=== PATIENT | male | born 1960 | race Caucasian/White ===

== ENCOUNTER 2024-02-26 07:36 | Emergency (ER) | payer MEDICAID ==
[~2024-02-26] VITALS: Ht 175.3 cm; Wt 95.0 kg
[2024-02-26 07:59] LABS: Urine Bacteria None Seen /hpf (None Seen)
[2024-02-26 08:17] LABS: Urine Blood Negative /uL (Negative); Urine Clarity Clear (Clear); Urine Color Yellow (Yellow); Urine Hyaline Cast FEW /lpf (0 - 2); Urine Mucus FEW (None Seen); Urine Protein, UAD TRACE (Negative); Urine Specific Gravity 1.033 (1.001-1.035); Urine Squamous Epithelial Cell FEW /hpf (<5); Urine Urobilinogen Normal (Negative); Urine WBC 5 /hpf (0 - 3); Urine pH 5.5 (5.0-9.0)
--- NOTE | 2024-02-26 10:28 | ED.PDOC ---
History of Present Illness HPI Comments 64 y/o M, with a Hx of HLD, HTN, obesity, and gastric sleeve Sx, presents with c/o HTN, headache, and LLQ abdominal and left-lower back pain, today. Patient endorses on his blood pressure being uncontrolled, lately, amidst consulting his PCP and doubling his HTN medication (baseline prescription: Lisinopril 10mg BID), with most recent reading at home of 185/95. He also reports additional, unprovoked and sudden onset of headache and LLQ abdominal pain that radiates to his back, that he describes as fluctuating between dull and stabbing in quality. Patient reports no recent injuries, sick contact, or any additional relevant or pertinent Hx. He denies having any chest pain, shortness of breath, vision or speech changes, fever, chills, or other associated symptoms or modifiers at this time. Chief Complaint: High Blood Pressure Time Seen by MD: 09:20 Primary Care Provider: OOA Reviewed Notes: Nurses Notes, Medications, Allergies Allergies: Coded Allergies: NO KNOWN ALLERGIES (Unverified , 02/26/24) Information Source: Patient Mode of Arrival: Ambulatory Severity: Moderate Timing: Other (see HPI) Duration: Since onset Prehospital treatment: None Past Medical History PAST MEDICAL HISTORY: High Lipids, HTN Past Medical History (Other): obesity Surgical History (Other): gastric sleeve Family History Family History: Reviewed,noncontributory to illness Social History Smoker: Non-Smoker Alcohol: Denies ETOH Use Drugs: Denies Drug Use Lives In: Home Gastrointestinal: reports: abdominal pain Neurological: reports: headache Musculoskeletal: reports: back pain Hematologic/Lymphatic: reports: others (HTN) All Other Systems: Reviewed and Negative (negative unless otherwise stated above or in HPI) Physical Exam General Appearance: Moderate Distress HEENT: Normal ENT Inspection, Pharynx Normal, TMs Normal Neck: Full Range of Motion, Non-Tender, Normal, Normal Inspection Respiratory: Chest Non-Tender, Lungs Clear, No Accessory Muscle Use, No Respiratory Distress, Normal Breath Sounds Cardiovascular: No Edema, No JVD, No Murmur, No Gallop, Normal Peripheral Pulses, Regular Rate/Rhythm Breast Exam: Deferred Gastrointestinal: No Organomegaly, Non Tender, No Pulsatile Mass, Normal Bowel Sounds, Soft Genitalia: Deferred Pelvic: Deferred Rectal: Deferred Extremities: No calf tenderness, Normal capillary refill, Normal inspection, Normal range of motion, Non-tender, No pedal edema Musculoskeletal : Apperance: Normal Neurologic: Alert, bread stacker II-XII nml as Tested, No Motor Deficits, Normal Affect, Normal Mood, No Sensory Deficits Cerebellar Function: Normal Reflexes: Normal Skin: Dry, Normal Color, Warm Peripheral Pulses: 3+ Radial (R), 3+ Radial (L) Lymphatic: No Adenopathy Was a procedure done? Was a procedure done?: No Differential Dx Considerations may include: HTN uncontrolled, HTN emergency, inappropriate medication dosage, diverticulitis, testicular torsion, PID, cystitis, migraine, tension headache X-Ray, Labs, Meds, VS Vital Signs Date Time Temp Pulse Resp B/P (MAP) Pulse Ox O2 Delivery O2 Flow Rate FiO2 02/26/24 10:32 97.8 58 18 151/83 (105) 96 97.8 02/26/24 10:32 58 18 96 Room Air 02/26/24 10:32 151/83 02/26/24 07:50 98.4 71 18 151/95 (113) 97 Lab Test 02/26/24 10:15 02/26/24 07:46 Range/Units White Blood Count 6.8 4.4-10.8 10^3/uL Red Blood Count 4.84 4.5-5.90 10^6/uL Hemoglobin 15.2 13.5-17.5 g/dL Hematocrit 44.8 41.0-53.0 % Mean Corpuscular Volume 92.5 80.0-100.0 fL Mean Corpuscular Hemoglobin 31.3 28.0-32.0 pg Mean Corpuscular Hemoglobin Concent 33.9 32.0-36.0 g/dL Red Cell Distribution Width 13.7 11.8-14.3 % Platelet Count 282 140-450 10^3/uL Mean Platelet Volume 7.4 6.9-10.8 fL Neutrophils (%) (Auto) 63.7 37.0-80.0 % Lymphocytes (%) (Auto) 24.2 10.0-50.0 % Monocytes (%) (Auto) 7.6 0.0-12.0 % Eosinophils (%) (Auto) 4.0 0.0-7.0 % Basophils (%) (Auto) 0.5 0.0-2.0 % Neutrophils # (Auto) 4.3 1.6-8.6 10 ^3/uL Lymphocytes # (Auto) 1.6 0.4-5.4 10 ^3/uL Monocytes # (Auto) 0.5 0-1.3 10 ^3/uL Eosinophils # (Auto) 0.3 0-0.8 10 ^3/uL Basophils # (Auto) 0 0-0.2 10 ^3/uL Nucleated Red Blood Cells 0.1 % Sodium Level 144 136-145 mmol/L Potassium Level 3.9 3.5-5.1 mmol/L Chloride Level 111 H 98-107 mmol/L Carbon Dioxide Level 26 20-31 mmol/L Anion Gap 7 5-15 Blood Urea Nitrogen 10 9-23 mg/dL Creatinine 0.93 0.700-1.30 mg/dL Glomerular Filtration Rate Calc 93 >90 mL/min BUN/Creatinine Ratio Pending Serum Glucose 109 H 74-106 mg/dL Calcium Level 10.9 H 8.7-10.4 mg/dL Urine Color Yellow Yellow Urine Clarity Clear Clear Urine pH 5.5 5.0-9.0 Urine Specific [place] 1.033 1.001-1.035 Urine Protein Trace H Negative Urine Ketones Negative Negative Urine Blood Negative Negative /uL Urine Nitrite Negative Negative Urine Bilirubin Negative Negative Urine Urobilinogen Normal Negative mg/dL Urine Leukocyte Esterase 2+ Negative /uL Urine RBC 4 0 - 3 /hpf Urine WBC 5 0 - 3 /hpf Urine Squamous Epithelial Cells Few <5 /hpf Urine Bacteria None seen None Seen /hpf Urine Hyaline Casts Few 0 - 2 /lpf Urine Mucus Few None Seen Urine Glucose Normal Normal mg/dL Current Medications Medications (Trade) Dose Ordered Sig/Lola Route Start Time Stop Time Status Last Admin Clonidine HCl (Catapres Tablet) 0.2 mg ONCE ONCE PO 02/26/24 10:15 02/26/24 10:16 DC 02/26/24 10:32 Patient alert. Complaining of having high blood pressure. Was given clonidine. Vitals stable. Blood pressure normalized. UA shows UTI. Was given prescription of Bactrim. WBC within normal limits. Hemoglobin within normal limits. Abdomen is soft nontender. Reviewed his history. Explained to the patient. Was told to follow up with his primary care physician. Was told to come back if there is any problem. For his blood pressure he was told to have diet controlled. Exercise. Relaxation techniques. Continue lisinopril. Time of 1ST Reevaluation: 09:50 Reevaluation 1ST: Improved Time of 2ND Reevaluation: 11:00 Reevaluation 2ND: Improved Patient Education/Counseling: Diagnosis, Treatment Family Education/Counseling: No Family Present Additional Information I reviewed the following notes from patient's past medical encounters: ED physician documentation on 02/13/24 The following tests were ordered, and results were reviewed by me: BMP, CBC, UA I discussed treatment and results with medical personnel Departure 1 Departure Time of Disposition: 11:01 Impression: Primary Impression: Hypertension Qualified Codes: I10 - Essential (primary) hypertension Additional Impression: UTI (urinary tract infection) Qualified Codes: N30.00 - Acute cystitis without hematuria Disposition: 01 HOME / SELF CARE / HOMELESS Condition: Good e-Prescriptions Sulfamethoxazole W/Trimethopri (Bactrim Ds Tablet) 1 Tab Tb 1 TAB PO BID for 5 Days, #10 TAB Prov: SALOME GARCIA MD 02/26/24 Discharged With: Self Critical Care Note Critical Care Time?: No Stability Stability form required: No Heart Score Heart Score: Heart Score Response (Comments) Value History N/A 0 EKG N/A 0 Age N/A 0 Risk Factors N/A 0 Troponin N/A 0 Total 0 I personally scribed for SALOME GARCIA MD ([email or web address]) on 02/26/24 at 10:28. Electronically submitted by Abdiaziz Mar ([email or web address]). I personally scribed for SALOME GARCIA MD ([email or web address]) on 02/26/24 at 10:29. Electronically submitted by Abdiaziz Mar ([email or web address]). SALOME GARCIA MD Feb 26, 2024 10:28
[2024-02-26 10:32] VITALS: TEMP 97.8
[2024-02-26] MEDS: cloNIDine HCL 0.1 MG TAB PO ONE (10:32)
[2024-02-26 10:35] LABS: Basophils # (auto) 0 10 ^3/uL (0-0.2); Basophils % (auto) 0.5 % (0.0-2.0); Eosinophils # (auto) 0.3 10 ^3/uL (0-0.8); Hematocrit 44.8 % (41.0-53.0); Hemoglobin 15.2 g/dL (13.5-17.5); Lymphocytes # (auto) 1.6 10 ^3/uL (0.4-5.4); Lymphocytes % (auto) 24.2 % (10.0-50.0); Mean Corpuscular Hemoglobin 31.3 pg (28.0-32.0); Mean Corpuscular Hgb Conc. 33.9 g/dL (32.0-36.0); Mean Corpuscular Volume 92.5 fL (80.0-100.0); Monocytes # (auto) 0.5 10 ^3/uL (0-1.3); Monocytes % (auto) 7.6 % (0.0-12.0); Neutrophils # (auto) 4.3 10 ^3/uL (1.6-8.6); Neutrophils % (auto) 63.7 % (37.0-80.0); Nucleated Red Blood Cells % 0.1 %; Platelet Count (auto) 282 10^3/uL (140-450); Red Blood Cells 4.84 10^6/uL (4.5-5.90); Red Cell Distribution Width 13.7 % (11.8-14.3); White Blood Cell 6.8 10^3/uL (4.4-10.8)
[2024-02-26 10:42] LABS: Potassium 3.9 mmol/L (3.5-5.1); Sodium 144 mmol/L (136-145)
[2024-02-26 10:43] LABS: Anion Gap 7 (5-15); Carbon Dioxide 26 mmol/L (20-31)
[2024-02-26 10:48] LABS: Calcium 10.9 mg/dL (8.7-10.4); Chloride 111 mmol/L (98-107); Glucose 109 mg/dL (74-106)
[2024-02-26] MEDS ORDERED: BACDST PO (11:03)
[2024-02-26 11:05] VITALS: BP 140/82; PULSE 64; RESP 16; O2SAT 97
[2024-02-26 11:33] LABS: BUN/Creatinine Ratio 10.8 (10.0-20.0); Blood Urea Nitrogen 10 mg/dL (9-23)
== END 2024-02-26 11:08 | disposition home or self-care (01) ==
LOC: ER 07:36
DX: I10 Essential (primary) hypertension (principal); N39.0 Urinary tract infection, site not specified; E78.5 Hyperlipidemia, unspecified
CPT/HCPCS: 36415; 80048; 81001; 85025

== ENCOUNTER 2024-02-28 18:34 | Emergency (ER) | payer MEDICAID ==
[~2024-02-28] VITALS: Ht 175.3 cm; Wt 92.2 kg
[~2024-02-28 18:34] MED LIST: BACDST PO
--- NOTE | 2024-02-28 18:52 | ED.PDOC ---
HPI Comments 64-year-old male with PMHx HLD, HTN presents with a chief complaint of palpitations and irregular heart rate x 20 minutes. Patient states that he began to have spontaneous chest pressure and felt palpitations in his chest. Patient denies ever feeling this before in the past. Patient was found to be in A-Fib via EKG at a rate of 105. Patient denies any history of A-Fib. Patient denies SOB, chest pain, headache, nausea, vomiting, or abdominal pain. Chief Complaint: Chest Pain Time Seen by MD: 18:44 Primary Care Provider: Darshana Nunez Notes: Medications, Allergies Allergies: Coded Allergies: Aspirin (Unverified Allergy, Unknown, 02/28/24) Home Meds Active Scripts Sulfamethoxazole W/Trimethopri (Bactrim Ds Tablet) 1 Tab Tb, 1 TAB PO BID for 5 Days, #10 TAB Prov:SALOME GARCIA MD 02/26/24 Information Source: Patient Mode of Arrival: Ambulatory Severity: Moderate Timing: Minutes Duration: Since onset Prehospital treatment: None Location: Chest (L) Quality: Pressure Onset: At Rest Cardiac Risk Factors: HTN PE Risk Factors: None History of: None Past Medical History PAST MEDICAL HISTORY: High Lipids, HTN Family History Family History: Reviewed,noncontributory to illness Social History Smoker: Non-Smoker Alcohol: Denies ETOH Use Drugs: Denies Drug Use Lives In: Home Constitutional: denies: chills, diaphoresis, fatigue, fever, malaise, sweats, weakness, others EENTM: denies: blurred vision, double vision, ear bleeding, ear discharge, ear drainage, ear pain, ear ringing, eye pain, eye redness, hearing loss, mouth pain, mouth swelling, nasal discharge, nose bleeding, nose congestion, nose pain, photophobia, tearing, throat pain, throat swelling, voice changes, others Respiratory: denies: cough, hemoptysis, orthopnea, SOB at rest, shortness of breath, SOB with excertion, stridor, wheezing, others Cardiovascular: reports: irregular heart beat, palpitations; denies: chest pain, dizzy spells, diaphoresis, Dyspnea on exertion, edema, left arm pain, lightheadedness, PND, syncope, others Gastrointestinal: denies: abdomen distended, abdominal pain, blood streaked bowels, constipated, diarrhea, dysphagia, difficulty swallowing, hematemesis, melena, nausea, poor appetite, poor fluid intake, rectal bleeding, rectal pain, vomiting, others Genitourinary: denies: burning, dysuria, flank pain, frequency, hematuria, incontinence, penile discharge, penile sore, pain, testicle pain, testicle swelling, urgency, others Neurological: denies: dizziness, fainting, headache, left sided numbness, left sided weakness, numbness, paresthesia, pre-existing deficit, right sided numbness, right sided weakness, seizure, speech problems, tingling, tremors, weakness, others Musculoskeletal: denies: back pain, gout, joint pain, joint swelling, muscle pain, muscle stiffness, neck pain, others Integumetry: denies: bruises, change in color, change in hair/nails, dryness, laceration, lesions, lumps, rash, wounds, others Allergic/Immunocompromised: denies: Difficulty Healing, Frequent Infections, Hives, Itching, others Hematologic/Lymphatic: denies: anemia, blood clots, easy bleeding, easy bruising, swollen glands, others Endocrine: denies: excessive hunger, excessive sweating, excessive thirst, excessive urination, flushing, intolerance to cold, intolerance to heat, unexplained weight gain, unexplained weight loss, others Psychiatric: denies: anxiety, bipolar disorder, depression, hopeless, panic disorder, schizophrenia, sleepless, suicidal, others All Other Systems: Reviewed and Negative Physical Exam General Appearance: No Apparent Distress, Normal HEENT: Normal ENT Inspection, Pharynx Normal, TMs Normal Neck: Full Range of Motion, Non-Tender, Normal, Normal Inspection Respiratory: Chest Non-Tender, Lungs Clear, No Accessory Muscle Use, No Respiratory Distress, Normal Breath Sounds Cardiovascular: No Edema, No JVD, No Murmur, No Gallop, Normal Peripheral Pulses, Regular Rate/Rhythm Breast Exam: Deferred Gastrointestinal: No Organomegaly, Non Tender, No Pulsatile Mass, Normal Bowel Sounds, Soft Genitalia: Deferred Pelvic: Deferred Rectal: Deferred Extremities: No calf tenderness, Normal capillary refill, Normal inspection, Normal range of motion, Non-tender, No pedal edema Musculoskeletal : Apperance: Normal Neurologic: Alert, biomedical manager II-XII nml as Tested, No Motor Deficits, Normal Affect, Normal Mood, No Sensory Deficits Cerebellar Function: Normal Reflexes: Normal Skin: Dry, Normal Color, Warm Lymphatic: No Adenopathy EKG EKG : Pulse Rate (adult): 105 [place]: Normal Cardiac Rhythm: Afib Block: None Hypertrophy: None ST: Normal Was a procedure done? Was a procedure done?: Yes Sedation Sedation?: Yes Informed consent obtained: Yes Sedation start time: 23:54 Sedation end time: 00:15 Sedation total time: 20 Cardioversion Vagal maneuver: Were attempted Attempts: x1, Joules (120 synchronized) Resulted Rhythm: NSR Direct Supervision: Yes Informed consent obtained: Yes Risks/benefits/alt described: Yes CP Differential Dx Differential Diagnosis: A-fib, A-Flutter, Angina, Atrial Dysrhythmia, Heart Failure, PAC's, PSVT, PVC's, Sinus Tachycardia, Ventricular Dysrhythmia, V-Fib, V-Tach, WPW Differential Diagnosis: Other Differential Diagnosis: Other X-Ray, Labs, Meds, VS Vital Signs Date Time Temp Pulse Resp B/P (MAP) Pulse Ox O2 Delivery O2 Flow Rate FiO2 02/28/24 21:36 67 02/28/24 21:30 98.8 78 10 164/107 (126) 98 98.8 02/28/24 21:30 78 10 98 Room Air* 0 21 02/28/24 21:19 68 02/28/24 19:38 77 02/28/24 18:52 105 02/28/24 18:42 99.0 62 17 175/95 (121) 98 02/28/24 18:39 105 Lab Test 02/28/24 19:46 02/28/24 18:44 Range/Units Troponin I High Sensitivity 4 < 3 L </=54 ng/L White Blood Count 8.0 4.4-10.8 10^3/uL Red Blood Count 4.98 4.5-5.90 10^6/uL Hemoglobin 15.5 13.5-17.5 g/dL Hematocrit 45.8 41.0-53.0 % Mean Corpuscular Volume 92.0 80.0-100.0 fL Mean Corpuscular Hemoglobin 31.1 28.0-32.0 pg Mean Corpuscular Hemoglobin Concent 33.9 32.0-36.0 g/dL Red Cell Distribution Width 13.6 11.8-14.3 % Platelet Count 270 140-450 10^3/uL Mean Platelet Volume 6.9 6.9-10.8 fL Neutrophils (%) (Auto) 50.9 37.0-80.0 % Lymphocytes (%) (Auto) 35.5 10.0-50.0 % Monocytes (%) (Auto) 8.0 0.0-12.0 % Eosinophils (%) (Auto) 4.3 0.0-7.0 % Basophils (%) (Auto) 1.3 0.0-2.0 % Neutrophils # (Auto) 4.0 1.6-8.6 10 ^3/uL Lymphocytes # (Auto) 2.8 0.4-5.4 10 ^3/uL Monocytes # (Auto) 0.6 0-1.3 10 ^3/uL Eosinophils # (Auto) 0.3 0-0.8 10 ^3/uL Basophils # (Auto) 0.1 0-0.2 10 ^3/uL Nucleated Red Blood Cells 0.1 % Prothrombin Time 10.9 9.3-11.8 sec Prothrombin Time INR 1.03 0.9-1.15 Activated Partial Thromboplast Time 23.9 L 24.5-34.5 SEC Sodium Level 143 136-145 mmol/L Potassium Level 3.3 L 3.5-5.1 mmol/L Chloride Level 109 H 98-107 mmol/L Carbon Dioxide Level 24 20-31 mmol/L Anion Gap 10 5-15 Blood Urea Nitrogen 15 9-23 mg/dL Creatinine 1.09 0.700-1.30 mg/dL Glomerular Filtration Rate Calc 77 >90 mL/min BUN/Creatinine Ratio 13.8 10.0-20.0 Serum Glucose 116 H 74-106 mg/dL Calcium Level 11.5 H 8.7-10.4 mg/dL Total Bilirubin 0.9 0.2-1.0 mg/dL Aspartate Amino Transferase (AST) 14 13-40 U/L Alanine Aminotransferase (ALT) 23 7-40 U/L Alkaline Phosphatase 88 46-116 U/L Total Protein 7.3 5.7-8.2 g/dL Albumin 4.9 H 3.2-4.8 g/dL Thyroid Stimulating Hormone (TSH) 2.07 0.55-4.78 uIU/mL Free Thyroxine (T4) Calculated 0.95 0.89-1.76 ng/dL Current Medications Medications (Trade) Dose Ordered Sig/Lola Route Start Time Stop Time Status Last Admin Diltiazem HCl (Cardizem Injection) 15 mg ONCE ONCE IV 02/28/24 19:00 02/28/24 19:01 DC 02/28/24 21:47 Time of 1ST Reevaluation: 19:14 Reevaluation 1ST: Unchanged Time of 2ND Reevaluation: 00:06 Reevaluation 2ND: Improved Patient Education/Counseling: Diagnosis, Treatment, Prognosis Family Education/Counseling: No Family Present Departure 1 Departure Time of Disposition: 00:06 Impression: Primary Impression: Paroxysmal atrial fibrillation Disposition: 01 HOME / SELF CARE / HOMELESS Condition: Stable Discharged With: Self Critical Care Note Critical Care Time?: No Stability Stability form required: No Heart Score Heart Score: Heart Score Response (Comments) Value History Slightly Suspicious 0 EKG Normal 0 Age >65 2 Risk Factors 1 or 2 risk factors 1 Troponin Normal limit 0 Total 3 I personally scribed for JULIANNE CARBAJAL MD ([email or web address]) on 02/28/24 at 18:52. Electronically submitted by Callum Batista ([email or web address]). JULIANNE CARBAJAL MD Feb 28, 2024 18:52
[2024-02-28 18:53] LABS: Basophils # (auto) 0.1 10 ^3/uL (0-0.2); Basophils % (auto) 1.3 % (0.0-2.0); Eosinophils # (auto) 0.3 10 ^3/uL (0-0.8); Eosinophils % (auto) 4.3 % (0.0-7.0); Hematocrit 45.8 % (41.0-53.0); Hemoglobin 15.5 g/dL (13.5-17.5); Lymphocytes # (auto) 2.8 10 ^3/uL (0.4-5.4); Lymphocytes % (auto) 35.5 % (10.0-50.0); Mean Corpuscular Hemoglobin 31.1 pg (28.0-32.0); Mean Corpuscular Hgb Conc. 33.9 g/dL (32.0-36.0); Monocytes # (auto) 0.6 10 ^3/uL (0-1.3); Neutrophils % (auto) 50.9 % (37.0-80.0); Nucleated Red Blood Cells % 0.1 %; Platelet Count (auto) 270 10^3/uL (140-450); Red Blood Cells 4.98 10^6/uL (4.5-5.90); Red Cell Distribution Width 13.6 % (11.8-14.3)
[2024-02-28 19:09] LABS: Alanine Aminotransferase 23 U/L (7-40); Alkaline Phosphatase 88 U/L (46-116); Anion Gap 10 (5-15); Aspartate Aminotransferase 14 U/L (13-40); BUN/Creatinine Ratio 13.8 (10.0-20.0); Bilirubin, Total 0.9 mg/dL (0.2-1.0); Blood Urea Nitrogen 15 mg/dL (9-23); Carbon Dioxide 24 mmol/L (20-31); Sodium 143 mmol/L (136-145); Total Protein 7.3 g/dL (5.7-8.2)
[2024-02-28 19:16] LABS: Albumin 4.9 g/dL (3.2-4.8); Calcium 11.5 mg/dL (8.7-10.4); Chloride 109 mmol/L (98-107); Glucose 116 mg/dL (74-106); INR 1.03 (0.9-1.15); Partial Thromboplastin Time 23.9 SEC (24.5-34.5); Potassium 3.3 mmol/L (3.5-5.1); Prothrombin Time 10.9 sec (9.3-11.8)
--- NOTE | 2024-02-28 19:36 | DVH ---
CHEST RADIOGRAPH Indication: chest pain Technique: Single frontal view of the chest was obtained COMPARISON: None FINDINGS: Lines and Tubes: None Lungs: Clear Pleura: No effusion. No pneumothorax. Cardiomediastinal contours: Unremarkable Bones: Unremarkable IMPRESSION: 1. No acute disease.
[2024-02-28 21:30] VITALS: PULSE 78; RESP 10; TEMP 98.8; O2SAT 98
[2024-02-28] MEDS: KETAMINE 50mg/ML 1ml syringe IV ONE (21:30)
[2024-02-28] MEDS: dilTIAZem 25 MG/5 ML VIAL IV ONE (21:47)
[2024-02-28] MEDS: PROPOFOL 10 MG/ML 20 ML IV ONE (23:55)
[2024-02-29 01:10] VITALS: BP 123/84; PULSE 59; RESP 13; O2SAT 100
--- NOTE | 2024-02-29 05:57 | ECG ---
[facility] Test Date: 2024-02-28 Test Time: 19:38:39 Pat Name: GARRY RAMOS Department: ED Room: Gender: M Disability Hearing Officer: : 1960 Requested By: BHARGAV YEUNG Order Number: [id number] Reading MD: Brian Ruiz Measurements Intervals [place] Rate: 77 P: 0 [place]: 0 QRS: 14 QRSD: 99 T: -5 QT: 386 QTc: 437 Interpretive Statements Atrial fibrillation Borderline repolarization abnormality Electronically Signed On 03-01-2024 8:48:53 PST by Brian Ruiz Please click the below link to view image of tracing.
--- NOTE | 2024-02-29 05:58 | ECG ---
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
--- NOTE | 2024-02-29 05:58 | ECG ---
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
--- NOTE | 2024-03-06 18:04 | ECG ---
[facility] Test Date: 2024-02-28 Test Time: 18:39:12 Pat Name: GARRY RAMOS Department: ER Room: Gender: M Emts: DR MARTINEZ: 1960 Requested By: BHARGAV YEUNG Order Number: [id number] Reading MD: Brian Ruiz Measurements Intervals [place] Rate: 105 P: 0 [place]: 0 QRS: 22 QRSD: 99 T: -5 QT: 361 QTc: 478 Interpretive Statements Atrial fibrillation Repol abnrm suggests ischemia, diffuse leads Electronically Signed On 03-06-2024 18:13:03 PST by Brian Ruiz Please click the below link to view image of tracing.
== END 2024-02-29 01:13 | disposition home or self-care (01) ==
LOC: ER 18:34
DX: I48.0 Paroxysmal atrial fibrillation (principal); E78.5 Hyperlipidemia, unspecified; I10 Essential (primary) hypertension; Z79.899 Other long term (current) drug therapy; Z88.6 Allergy status to analgesic agent
CPT/HCPCS: 36415; 71045; 80053; 84439; 84443; 84484; 85025; 85610; 85730; 92960; 93005; 96374; 99152; 99285; J2704